=== PATIENT | female | born 1965 | race Caucasian/White ===

== ENCOUNTER 2018-05-22 02:09 | Emergency (ER) | payer MEDICARE, OTHER ==
[~2018-05-22] VITALS: Ht 157.5 cm; Wt 63.5 kg
[~2018-05-22 02:09] MED LIST: ATEN25 PO; ATEN50 PO; Crutch1 EACH MISC; LORA1 PO; MELA3 PO; OTC ANTACID PO; OXYCODONE; PHENY100ER PO; Percocet 10-321 EACH PO; ULTRA-LIGHT RO1 EACH MC; Zofran4 MG PO
[2018-05-22] MEDS ORDERED: PRAM.125 PO (02:54)
[2018-05-22] MEDS ORDERED: MELO7.5 PO (02:54)
[2018-05-22] MEDS ORDERED: FAMO10 PO (02:55)
[2018-05-22] MEDS ORDERED: Norco 5-325 Ta1 EACH PO (04:14)
== END 2018-05-22 04:33 | disposition home or self-care (01) ==
LOC: ER 02:09
DX: S63.502A Unspecified sprain of left wrist, initial encounter (principal); F41.9 Anxiety disorder, unspecified; F17.210 Nicotine dependence, cigarettes, uncomplicated; Z88.0 Allergy status to penicillin; Z88.5 Allergy status to narcotic agent; Z88.7 Allergy status to serum and vaccine; Z79.899 Other long term (current) drug therapy; X58.XXXA Exposure to other specified factors, initial encounter; Y93.E5 Activity, floor mopping and cleaning
CPT/HCPCS: 73110

== ENCOUNTER 2018-05-26 11:46 | Emergency (ER) | payer MEDICARE, OTHER ==
[~2018-05-26] VITALS: Ht 157.5 cm; Wt 63.5 kg
[~2018-05-26 11:46] MED LIST changes: +FAMO10 PO; +MELO7.5 PO; +Norco 5-325 Ta1 EACH PO; +PRAM.125 PO
[2018-05-26] MEDS ORDERED: Ultram50 MG PO (12:45)
== END 2018-05-26 12:50 | disposition home or self-care (01) ==
LOC: ER 11:46
DX: M25.532 Pain in left wrist (principal); G43.909 Migraine, unspecified, not intractable, without status migrainosus; F41.9 Anxiety disorder, unspecified; F17.210 Nicotine dependence, cigarettes, uncomplicated; Z88.0 Allergy status to penicillin; Z88.5 Allergy status to narcotic agent; Z88.7 Allergy status to serum and vaccine; Z79.899 Other long term (current) drug therapy
CPT/HCPCS: 29125; 99283

== ENCOUNTER 2024-03-10 09:44 | Inpatient (IN) | payer MEDICARE, OTHER ==
[~2024-03-10] VITALS: Ht 157.5 cm; Wt 43.1 kg
[~2024-03-10 09:44] MED LIST changes: +Ultram50 MG PO
[2024-03-10] MEDS ORDERED: FentaNYL Citrate 50 MCG/ML 2 ML Injection IV ONE (10:00)
[2024-03-10] MEDS ORDERED: NS 1,000 ML IV SCH ×2 (10:00→14:05)
[2024-03-10 10:40] LABS: BASOPHILS ABSOLUTE AUTO 0.21 K/mm3 (0.00-0.23); BASOPHILS PERCENT AUTO 1 % (0-2); EOSINOPHILS ABSOLUTE AUTO 0.47 K/mm3 (0.00-0.68); EOSINOPHILS PERCENT AUTO 2 % (0-6); Hematocrit 36.3 % (33.0-51.0); Hemoglobin 12.1 g/dL (11.5-16.0); IMMATURE GRAN ABSOLUTE AUTO 0.17 K/mm3 (0.00-0.10); IMMATURE GRAN PERCENT AUTO 1 % (0-1); LYMPHOCYTES ABSOLUTE AUTO 3.93 K/mm3 (0.84-5.20); LYMPHOCYTES PERCENT AUTO 17 % (21-46); MONOCYTES ABSOLUTE AUTO 1.85 K/mm3 (0.16-1.47); MONOCYTES PERCENT AUTO 8 % (4-13); Mean Corpuscular HGB 29.4 pg (26.0-34.0); Mean Corpuscular HGB Conc 33.3 g/dL (31.5-36.5); Mean Corpuscular Volume 88 fL (80-100); Mean Platelet Volume 8.3 fL (9.1-12.4); NEUTROPHILS ABSOLUTE AUTO 17.09 K/mm3 (1.96-9.15); NEUTROPHILS PERCENT AUTO 72 % (41-73); Platelet Count 830 K/mm3 (150-400); RDW Coefficient Variation 15.5 % (11.7-14.2); RDW Standard Deviation 48.9 fL (35.1-46.3); Red Blood Cell Count 4.12 M/mm3 (3.80-5.20); White Blood Cell Count 23.72 K/mm3 (4.00-11.30)
[2024-03-10] MEDS ORDERED: HYDROCODONE-AC1 EA19 PO (10:52)
[2024-03-10] MEDS ORDERED: DODEX1000 MCG/3 IM (10:53)
[2024-03-10] MEDS ORDERED: BACLOFEN10 M4 PO (10:53)
[2024-03-10] MEDS ORDERED: Simvastatin20 MG PO (10:53)
[2024-03-10 11:03] LABS: Albumin, Blood 2.2 g/dL (3.4-5.0); Albumin/Globulin Ratio 0.4 (0.8-1.8); Bilirubin, Total 0.3 mg/dL (0.1-1.0); Bun/Creatinine Ratio 18.4 (12.0-20.0); Calcium, Blood 8.5 mg/dL (8.5-10.1); Creatinine, Blood 0.54 mg/dL (0.40-1.00); Globulin, Blood 4.9 g/dL (2.2-4.0); Potassium, Blood 3.8 mmol/L (3.5-5.5); Total Protein, Blood 7.1 g/dL (6.4-8.2)
[2024-03-10 11:32] LABS: Source, Urine Clean Catch
[2024-03-10 12:06] LABS: Bilirubin, Urine Neg (Neg); Blood, Urine 3+ (Neg); Glucose Qualitative, Urine Neg (Neg); Ketones, Urine 1+ (Neg); Leukocyte Esterase, Urine 3+ (Neg); Nitrite, Urine Pos (Neg); Protein, Urine 2+ (Neg); Specific Gravity, Urine 1.015 (1.003-1.022); Urobilinogen, Urine NORM (Normal)
[2024-03-10 12:15] LABS: Appearance, Urine Hazy (Clear); Bacteria Many /hpf; Color, Urine Yellow (P-Yellow); Squamous Epithelial Cells Few /hpf (Few); White Blood Cells, Urine 25-50 /hpf (0-5)
[2024-03-10] MEDS ORDERED: Pantoprazole Sodium 40 MG Injection IV ONE (12:35)
[2024-03-10] MEDS ORDERED: CefTRIAXone Sodium 1,000 MG in NS 100 ML IV ONE (12:50)
[2024-03-10] MEDS ORDERED: Ondansetron 4 MG TAB PO PRN (14:10)
[2024-03-10] MEDS ORDERED: Acetaminophen 325 MG TABLET PO PRN (14:10)
[2024-03-10] MEDS ORDERED: HYDROcodone 10-APAP 325 TAB PO PRN (14:10)
[2024-03-10] MEDS ORDERED: NS 1,000 ML IV ONE (15:02)
[2024-03-10 15:55] VITALS: BP 115/69
--- NOTE | 2024-03-10 16:22 | NUR ---
ADMIT ARRIVED FROM ED VIA FUAD MARTIN, A&OX4, PT IS WEAK AND APPEARS EMACIATED, ASSISTED TO PIVOT TRANSFER TO BED, PT CAN BARELY STAND, STATES SHE USES A WALKER AND W/C AT HOME, PT'S CLOTHES APPEAR TO BE TOO LARGE FOR HER SIZE, PT'S PANTS FELL DOWN SHE STOOD STATES SHE LIVES AT HOME BUT HAS A CAREGIVER AND THAT SHE HASN'T BEEN ABLE TO EAT MUCH DUE TO HER CHRONIC ABD DISCOMFORT, PT REPORTS SEEING A GI PROVIDER FOR HER ABD DISCOMFORT, DENIES ANY NAUSEA OR PAIN AT THIS TIME, ORIENTED TO ROOM AND CALL SYSTEM, DR. RIZZO CURRENTLY IN ROOM TO SEE PT.
[2024-03-10] MEDS ORDERED: Sucralfate 1000MG / 10ML UD BTL PO SCH (16:30)
[2024-03-10] MEDS ORDERED: Pantoprazole Sodium 40 MG Injection IV SCH (16:30)
[2024-03-10] MEDS ORDERED: Mag Hydrox/Al Hydrox/Simeth 72 ML,Lidocaine 2% Viscous Soln 36 ML,Atropine/Scopalam/Hyo... PO PRN (17:25)
--- NOTE | 2024-03-10 18:18 | NUR ---
SUMMARY ED ADMIT TODAY FOR EPIGASTRIC PAIN, PT HAS DENIED ANY NEED FOR PAIN MEDS OR NAUSEA MEDS SINCE ADMIT, STATES PAIN IS "BETTER THAN IT WAS" DR. RIZZO SAW PT AT ADMIT, PLAN FOR POSSIBLE EGD TOMORROW PER DR. RIZZO, NPO FOR NOW, NO ACUTE CHANGES THIS SHIFT.
[2024-03-10 19:56] VITALS: BP 108/57
[2024-03-11 03:57] VITALS: BP 140/65
[2024-03-11] MEDS ORDERED: Morphine Sulfate 4 MG/1 ML Injection IV PRN (05:00)
[2024-03-11] MEDS ORDERED: Naloxone HCl 0.4MG / ML 1ML Vial IV PRN (05:00)
[2024-03-11 05:36] LABS: Hematocrit 29.5 % (33.0-51.0); Hemoglobin 9.5 g/dL (11.5-16.0); Mean Corpuscular HGB 29.4 pg (26.0-34.0); Mean Corpuscular HGB Conc 32.2 g/dL (31.5-36.5); Mean Corpuscular Volume 91 fL (80-100); Mean Platelet Volume 8.8 fL (9.1-12.4); Platelet Count 712 K/mm3 (150-400); RDW Coefficient Variation 15.9 % (11.7-14.2); RDW Standard Deviation 52.3 fL (35.1-46.3); Red Blood Cell Count 3.23 M/mm3 (3.80-5.20); White Blood Cell Count 14.69 K/mm3 (4.00-11.30)
[2024-03-11 06:11] LABS: Albumin, Blood 1.8 g/dL (3.4-5.0); Albumin/Globulin Ratio 0.4 (0.8-1.8); Bilirubin, Total 0.2 mg/dL (0.1-1.0); Bun/Creatinine Ratio 11.6 (12.0-20.0); Creatinine, Blood 0.52 mg/dL (0.40-1.00); Potassium, Blood 3.8 mmol/L (3.5-5.5); Total Protein, Blood 5.8 g/dL (6.4-8.2)
--- NOTE | 2024-03-11 06:56 | NUR ---
SUMMARY PT C/O INCREASED PAIN THIS AM. I CALLED AND RECIEVED CAMMIE FOR MORPHINE IV 1 MG COWAN GIVEN.PT RESTING QUIETLY AT THIS TIME.
[2024-03-11 07:29] VITALS: BP 110/74
--- NOTE | 2024-03-11 07:40 | NUR ---
PT GAVE VERBAL PERMISSION TO SPEAK WITH DAUGHTER DAMEON AND GIVE INFO REGARDING HER STATUS AND PROCEDURES BEING DONE,BUT DOES NOT WANT PT SPEAKING WITH HER DOCTOR AND DAUGHTER NOT ALLOWED TO MAKE ANY DECISIONS REGARDING PT.
--- NOTE | 2024-03-11 11:26 | NUR ---
"Spiritual Care | Pt. request. pt. is awake in bed and welcomes my visit. Pt. is pleasant, and I facilitated a life review. Pt. displayed evidence of trust but is unsettled by not being able to her condition properly diagnosed. Considered matters of meaghan and belief. Prayed with Pt. Pt. verbalized gratitude for the spiritual care visit and welcomed this roll filler to return."
[2024-03-11] MEDS ORDERED: Nicotine Polacrilex 2 MG Gum PO ONE (12:00)
[2024-03-11] MEDS ORDERED: Nicotine Polacrilex 2 MG Gum PO PRN (12:00)
[2024-03-11] MEDS ORDERED: DiphenhydrAMINE HCl 50 MG Cap PO PRN (12:05)
[2024-03-11 12:20] LABS: BASOPHILS ABSOLUTE AUTO 0.12 K/mm3 (0.00-0.23); BASOPHILS PERCENT AUTO 1 % (0-2); EOSINOPHILS PERCENT AUTO 2 % (0-6); Hemoglobin 10.4 g/dL (11.5-16.0); IMMATURE GRAN ABSOLUTE AUTO 0.06 K/mm3 (0.00-0.10); IMMATURE GRAN PERCENT AUTO 0 % (0-1); LYMPHOCYTES ABSOLUTE AUTO 3.71 K/mm3 (0.84-5.20); LYMPHOCYTES PERCENT AUTO 23 % (21-46); MONOCYTES PERCENT AUTO 8 % (4-13); Mean Corpuscular HGB 29.1 pg (26.0-34.0); Mean Corpuscular HGB Conc 31.5 g/dL (31.5-36.5); Mean Corpuscular Volume 92 fL (80-100); Mean Platelet Volume 8.4 fL (9.1-12.4); NEUTROPHILS ABSOLUTE AUTO 10.47 K/mm3 (1.96-9.15); NEUTROPHILS PERCENT AUTO 66 % (41-73); Platelet Count 694 K/mm3 (150-400); RDW Coefficient Variation 15.7 % (11.7-14.2); RDW Standard Deviation 52.5 fL (35.1-46.3); Red Blood Cell Count 3.57 M/mm3 (3.80-5.20); White Blood Cell Count 15.86 K/mm3 (4.00-11.30)
[2024-03-11] MEDS ORDERED: CefTRIAXone Sodium 1,000 MG in NS 100 ML IV SCH (13:00)
--- NOTE | 2024-03-11 14:13 | NUR ---
REPORTS TOLERATING SMALL AMOUNTS OF CLEAR LIQUIDS, DENIES ANY ABD PAIN AT THIS TIME, REFUSED NICOTINE GUM.
[2024-03-11 14:21] VITALS: BP 118/63
[2024-03-11] MEDS ORDERED: Pramipexole DI-HCL 0.125 MG Tab PO ONE (17:05)
--- NOTE | 2024-03-11 18:01 | NUR ---
SUMMARY A&OX4, DENIED ANY ABD PAIN TODAY, SLEPT ON AND OFF, USES [facility]SC W/ ASSIST, STARTED ON CL WITH SOME CHEESE AND CRACKERS OK PER DR. SANTA, PT REPORTS TOLERATED WELL, C/O PAIN AND "RESTLESS" LEGS ON BLE'S STATES DUE TO HER REYNAUD'S SYNDROME,NORCO FOR PAIN, MIRAPEX RE-STARTED, K-PAD GIVEN FOR COMFORT, PLAN FOR UGI XR IN AM PER DR. SANTA, NO OTHER CHANGES THIS SHIFT.
[2024-03-12 05:35] LABS: BASOPHILS ABSOLUTE AUTO 0.16 K/mm3 (0.00-0.23); BASOPHILS PERCENT AUTO 1 % (0-2); EOSINOPHILS PERCENT AUTO 4 % (0-6); Hematocrit 30.8 % (33.0-51.0); Hemoglobin 9.9 g/dL (11.5-16.0); IMMATURE GRAN ABSOLUTE AUTO 0.08 K/mm3 (0.00-0.10); IMMATURE GRAN PERCENT AUTO 1 % (0-1); LYMPHOCYTES ABSOLUTE AUTO 4.17 K/mm3 (0.84-5.20); LYMPHOCYTES PERCENT AUTO 33 % (21-46); MONOCYTES ABSOLUTE AUTO 1.04 K/mm3 (0.16-1.47); MONOCYTES PERCENT AUTO 8 % (4-13); Mean Corpuscular HGB 29.4 pg (26.0-34.0); Mean Corpuscular HGB Conc 32.1 g/dL (31.5-36.5); Mean Corpuscular Volume 91 fL (80-100); Mean Platelet Volume 8.8 fL (9.1-12.4); NEUTROPHILS ABSOLUTE AUTO 6.71 K/mm3 (1.96-9.15); NEUTROPHILS PERCENT AUTO 53 % (41-73); Platelet Count 739 K/mm3 (150-400); RDW Standard Deviation 53.1 fL (35.1-46.3); Red Blood Cell Count 3.37 M/mm3 (3.80-5.20); White Blood Cell Count 12.66 K/mm3 (4.00-11.30)
[2024-03-12 05:44] VITALS: BP 127/69
[2024-03-12 06:15] LABS: Alanine Aminotransfer (ALT/SGP <6 U/L (12-78); Albumin, Blood 1.8 g/dL (3.4-5.0); Albumin/Globulin Ratio 0.4 (0.8-1.8); Alk Phos 149 U/L (50-136); Anion Gap 8 mmol/L (3-11); Aspartate Aminotrans (AST/SGOT 6 U/L (12-37); Bilirubin, Total 0.1 mg/dL (0.1-1.0); Blood Urea Nitrogen 3 mg/dL (8-24); Bun/Creatinine Ratio 7.2 (12.0-20.0); CO2, Blood 25 mmol/L (21-32); Chloride, Blood 113 mmol/L (98-108); Creatinine, Blood 0.42 mg/dL (0.40-1.00); Globulin, Blood 4.2 g/dL (2.2-4.0); Glomerular Filtration Rate 115 (60-); Glucose, Blood 84 mg/dL (70-99); Potassium, Blood 3.8 mmol/L (3.5-5.5); Sodium, Blood 142 mmol/L (136-145)
[2024-03-12 07:16] VITALS: BP 116/70
--- NOTE | 2024-03-12 07:24 | NUR ---
summary pt transferred from [facility] tonight.alert,but oriented to self only.pt with picc line lue.bilat arm fx with bruising and scabs to [facility].tele notes afib at controlled rate.pt with htn which is not new. i called dr garcia and received order for hydralazine and gave first dose.pts picc federico for blood without diff. pt pulled ng out approx 0600.
--- NOTE | 2024-03-12 07:32 | NUR ---
summary pt anxiously waiting for ugi. pt verb u nderstanding of being npo at this time.
[2024-03-12] MEDS ORDERED: Nicotine 21 MG PATCH TOP SCH (09:00)
[2024-03-12] MEDS ORDERED: Multivitamins 1 Tab PO SCH (09:00)
[2024-03-12] MEDS ORDERED: Pramipexole DI-HCL 0.125 MG Tab PO SCH (09:00)
[2024-03-12] MEDS ORDERED: Thiamine HCl 100 MG Tab PO SCH (09:00)
[2024-03-12 14:34] VITALS: BP 119/71
--- NOTE | 2024-03-12 18:34 | NUR ---
SHIFT SUMMARY: PT TOLERATED CLEAR LIQUID DIET THROUGHOUT THE DAY AND GRADUATED TO SOFT FOOD DIET. EATING DRINKING AND VOIDING WELL. PT DID NOT HAVE A BM TODAY TO COLLECT SPECIMEN. PT REMAINS TO HAVE ABD, LEG, AND BACK PAIN WHICH IS MEDICATED PER EMAR. PLEASANT MOOD. A&O X4. VSS.
[2024-03-12 19:49] VITALS: BP 122/72
--- NOTE | 2024-03-13 00:31 | NUR ---
IV AND MEDICATION MANAGEMENT CALL PLACED TO HOSPITALIST D/T LOOSING IV ACCESS, RECIEVED ORDER TO CHANGE IV MEDD TO PO MEDICATION. THE EMAR REFLECTS THIS CHANGE.
[2024-03-13 04:34] VITALS: BP 135/77
[2024-03-13 04:50] LABS: Hemoglobin 9.1 g/dL (11.5-16.0); Mean Corpuscular HGB 29.3 pg (26.0-34.0); Mean Corpuscular HGB Conc 32.5 g/dL (31.5-36.5); Mean Corpuscular Volume 90 fL (80-100); Mean Platelet Volume 8.5 fL (9.1-12.4); Platelet Count 632 K/mm3 (150-400); RDW Coefficient Variation 16.1 % (11.7-14.2); RDW Standard Deviation 52.3 fL (35.1-46.3); Red Blood Cell Count 3.11 M/mm3 (3.80-5.20); White Blood Cell Count 11.18 K/mm3 (4.00-11.30)
--- NOTE | 2024-03-13 05:00 | NUR ---
SHIFT SUMMARY VSS. PT SLEPT ON AND OFF T/O THE NIGHT. TOLLERATED CHEESE AND CRACKERS W/O N/V. REPORTS RUQ/EPIGASTRIC PAIN THAT IS PERSISTANT. MEDICATED FOR PAIN WITH NORCO AND MORPHINE WITH LITTLE IMPROVEMENT. PT REPORTED HER LEGS AND BACK WERE HER MAIN SOURCE OF PAIN T/O THE NIGHT. SELF TRANSFERRING TO [facility] T/O THE NIGHT. VOIDING WELL, NO BM NOTED. PT REPORTS PASSING SOME FLATTUS. PLEASENT AND COOPERATIVE. NO ACUTE EVENTS NOTED. PLAN FOR D/C TODAY IF PT CAN TOLLERATE DIET.
[2024-03-13 05:42] LABS: Alanine Aminotransfer (ALT/SGP <6 U/L (12-78); Albumin, Blood 1.8 g/dL (3.4-5.0); Albumin/Globulin Ratio 0.5 (0.8-1.8); Alk Phos 136 U/L (50-136); Anion Gap 9 mmol/L (3-11); Aspartate Aminotrans (AST/SGOT 6 U/L (12-37); Bilirubin, Total <0.1 mg/dL (0.1-1.0); Blood Urea Nitrogen 3 mg/dL (8-24); Bun/Creatinine Ratio 6.8 (12.0-20.0); CO2, Blood 27 mmol/L (21-32); Calcium, Blood 7.8 mg/dL (8.5-10.1); Chloride, Blood 111 mmol/L (98-108); Creatinine, Blood 0.44 mg/dL (0.40-1.00); Globulin, Blood 3.7 g/dL (2.2-4.0); Glomerular Filtration Rate 113 (60-); Glucose, Blood 79 mg/dL (70-99); Potassium, Blood 3.3 mmol/L (3.5-5.5); Sodium, Blood 144 mmol/L (136-145); Total Protein, Blood 5.5 g/dL (6.4-8.2)
[2024-03-13] MEDS ORDERED: Pantoprazole Sodium 40 MG Tab PO SCH (06:00)
[2024-03-13 06:57] LABS: BASOPHILS ABSOLUTE MAN 0.22 K/mm3 (0.00-0.23); BASOPHILS PERCENT MAN 2 % (0-2); EOSINOPHILS ABSOLUTE MAN 0.89 K/mm3 (0.00-0.68); EOSINOPHILS PERCENT MAN 8 % (0-6); LYMPHOCYTES ABSOLUTE MAN 4.36 K/mm3 (0.84-5.20); LYMPHOCYTES PERCENT MAN 39 % (21-46); MONOCYTES ABSOLUTE MAN 0.67 K/mm3 (0.16-1.47); MONOCYTES PERCENT MAN 6 % (4-13); NEUTROPHILS ABSOLUTE MAN 5.03 K/mm3 (1.96-9.15); SEG NEUTROPHILS PERCENT MAN 45 % (41-73); TOTAL CELLS COUNTED 100
[2024-03-13 07:41] VITALS: BP 136/75
[2024-03-13] MEDS ORDERED: Cefdinir 300 MG Cap PO SCH (09:00)
[2024-03-13] MEDS ORDERED: Potassium Chloride 20 MEQ TabCR PO ONE (09:00)
[2024-03-13] MEDS ORDERED: PANT40 PO (11:02)
[2024-03-13] MEDS ORDERED: CEFD300 PO (11:07)
--- NOTE | 2024-03-13 12:01 | NUR ---
DISCHARGE PT DISCHARGED HOME FROM UNIT AT APROX 1202 VIA [facility]. PT GIVEN WRITTEN AND VERBAL DISCHARGE INSTRUCTIONS AND VERBALIZED UNDERSTANDING OF THESE INSTRUCTIONS. NO IV TO REMOVE. NEW RX'S FAXED TO [facility] NOTIFIED.
== END 2024-03-13 12:48 | disposition home or self-care (01) | DRG 384 ==
LOC: ER 09:44 → SURS 09:45
PROVIDERS: Emergency Medicine; ADMIT Internal Medicine
DX: K27.9 Peptic ulcer, site unspecified, unspecified as acute or chronic, without hemorrhage or perforation (principal); N39.0 Urinary tract infection, site not specified; R64 Cachexia; Z68.1 Body mass index [BMI] 19.9 or less, adult; E46 Unspecified protein-calorie malnutrition; K29.80 Duodenitis without bleeding; F41.9 Anxiety disorder, unspecified; F10.90 Alcohol use, unspecified, uncomplicated; K82.8 Other specified diseases of gallbladder; K29.70 Gastritis, unspecified, without bleeding; T39.395A Adverse effect of other nonsteroidal anti-inflammatory drugs [NSAID], initial encounter; F17.210 Nicotine dependence, cigarettes, uncomplicated; M19.90 Unspecified osteoarthritis, unspecified site; Z87.81 Personal history of (healed) traumatic fracture; I48.91 Unspecified atrial fibrillation; Z98.51 Tubal ligation status; Z98.890 Other specified postprocedural states; I73.00 Raynaud's syndrome without gangrene; Z66 Do not resuscitate; Z88.0 Allergy status to penicillin; Z88.5 Allergy status to narcotic agent; Z88.7 Allergy status to serum and vaccine; Z79.899 Other long term (current) drug therapy; Z79.891 Long term (current) use of opiate analgesic; Z71.6 Tobacco abuse counseling; D64.9 Anemia, unspecified; R82.71 Bacteriuria
CPT/HCPCS: 36415; 74177; 74240; 76705; 80053; 81001; 83690; 85025; 85027; 87077; 87086; 87186; 94762; 96361; 96365-59; 96366; 96375; 96376; 99285-25; A9270; C9113; G0378; J0696; J2270; J3010; J7030; Q9967

== ENCOUNTER → 2024-04-27 | Outpatient (CLI) | payer MEDICARE, OTHER ==
[~2024-04-27] MED LIST changes: +BACLOFEN10 M4 PO; +CEFD300 PO; +DODEX1000 MCG/3 IM; +HYDROCODONE-AC1 EA19 PO; +PANT40 PO; +Simvastatin20 MG PO
[2024-04-27 11:07] LABS: Hematocrit 34.4 % (33.0-51.0); Hemoglobin 11.3 g/dL (11.5-16.0); Mean Corpuscular HGB 27.8 pg (26.0-34.0); Mean Corpuscular HGB Conc 32.8 g/dL (31.5-36.5); Mean Corpuscular Volume 85 fL (80-100); Mean Platelet Volume 10.1 fL (9.1-12.4); Platelet Count 499 K/mm3 (150-400); RDW Coefficient Variation 14.6 % (11.7-14.2); RDW Standard Deviation 45.2 fL (35.1-46.3); RETICULOCYTE ABSOLUTE 0.0491 M/mm3 (0.0200-0.1100); RETICULOCYTE COUNT PERCENT 1.21 % (0.50-2.50); Red Blood Cell Count 4.06 M/mm3 (3.80-5.20); White Blood Cell Count 16.58 K/mm3 (4.00-11.30)
[2024-04-27 11:36] LABS: BASOPHILS PERCENT MAN 0 % (0-2); EOSINOPHILS ABSOLUTE MAN 0.66 K/mm3 (0.00-0.68); EOSINOPHILS PERCENT MAN 4 % (0-6); LYMPHOCYTES % ATYPICAL MANUAL 2 % (0-0); LYMPHOCYTES ABSOLUTE MAN 4.47 K/mm3 (0.84-5.20); LYMPHOCYTES PERCENT MAN 25 % (21-46); MONOCYTES ABSOLUTE MAN 0.66 K/mm3 (0.16-1.47); MONOCYTES PERCENT MAN 4 % (4-13); NEUTROPHILS ABSOLUTE MAN 10.77 K/mm3 (1.96-9.15); SEG NEUTROPHILS PERCENT MAN 65 % (41-73); TOTAL CELLS COUNTED 100
[2024-04-27 11:43] LABS: Albumin, Blood 3.1 g/dL (3.4-5.0); Albumin/Globulin Ratio 0.7 (0.8-1.8); Bilirubin, Total 0.1 mg/dL (0.1-1.0); Bun/Creatinine Ratio 22.2 (12.0-20.0); Calcium, Blood 9.2 mg/dL (8.5-10.1); Creatinine, Blood 0.5 mg/dL (0.40-1.00); Globulin, Blood 4.7 g/dL (2.2-4.0); Percent Saturation 10.1 % (15.0-50.0); Potassium, Blood 4.1 mmol/L (3.5-5.5); Thyroid Stimulating Hormone 2.54 uIU/mL (0.360-4.800); Total Protein, Blood 7.8 g/dL (6.4-8.2)
[2024-04-28 20:33] LABS: ERYTHROPOIETIN 23 mU/mL (4-27)
[2024-04-29 14:35] LABS: SOLUBLE TRANSFERRIN RECEPTOR 3.2 mg/L (1.9-4.4)
[2024-04-30 06:48] LABS: ALBUMIN 3.49 g/dL (3.75-5.01); ALPHA 1 GLOBULIN 0.42 g/dL (0.19-0.46); ALPHA 2 GLOBULIN 1.14 g/dL (0.48-1.05); BETA GLOBULIN 1.02 g/dL (0.48-1.10); GAMMA 1.02 g/dL (0.62-1.51); IMMUNOFIXATION IFE Done; TOTAL PROTEIN, SERUM 7.1 g/dL (6.3-8.2)
== END ==
LOC: LAB 10:15 → LAB SHORT 10:15
PROVIDERS: Nurse Practitioner
DX: D64.9 Anemia, unspecified (principal); D72.829 Elevated white blood cell count, unspecified; D75.839 Thrombocytosis, unspecified; E55.9 Vitamin D deficiency, unspecified; E53.8 Deficiency of other specified B group vitamins
CPT/HCPCS: 80053; 82306; 82607; 82668; 82728; 82746; 83540; 83550; 83615; 84155; 84165; 84238; 84443; 85025; 85045; 85060; 86334

== ENCOUNTER 2024-06-24 14:18 | Day surgery (SDC) | payer MEDICARE, OTHER ==
[~2024-06-24] VITALS: Ht 157.5 cm; Wt 59.0 kg
[~2024-06-24 14:18] MED LIST changes: +Atropine Sulfate 0.1 MG/ML 10ML SYR ONE; +Glycopyrrolate 0.2 MG/ML 1MLVIAL ONE; +Lactated Ringer's 1,000 ML IV ONE; +Lidocaine 2% 5 ML SDV ONE; +Lidocaine HCl/Pf 1% 5 ML VIAL ONE; +Methylene Blue 1% 100 MG/10 ML VIAL ONE; +Ondansetron HCl 2 MG / ML 2ML Vial ONE; +ePHEDrine Sulfate 50 MG/ML 1ML Injection ONE
[2024-06-24] MEDS ORDERED: Tylenol W/Code120 ML (14:36)
[2024-06-24] MEDS ORDERED: BENADRYL25 MG (14:36)
[2024-06-24] MEDS ORDERED: LORA10ER (14:37)
[2024-06-24] MEDS ORDERED: Lactated Ringer's 1,000 ML IV ONE (14:45)
[2024-06-24] MEDS ORDERED: propofoL 50 ML IV ONE (15:20)
[2024-06-24 16:13] VITALS: BP 107/70
--- NOTE | 2024-06-25 09:44 | NUR ---
06/25/24 0944 Arlet Harris LATE ENTRY: DR ALVARADO GAVE PT A TOTAL OF 40 MG OF EPHEDRINE TO ASSIST PATIENT'S LOW BP FOLLOWING PROCEDURE.
== END 2024-06-24 16:15 | disposition home or self-care (01) ==
LOC: ORSCSDS 14:18
PROVIDERS: Surgery
PROC: 0DJ08ZZ Inspection of Upper Intestinal Tract, Via Natural or Artificial Opening Endoscopic (ICD-10-PCS; principal; 2024-06-24 15:15)
DX: Z87.11 Personal history of peptic ulcer disease (principal); K21.9 Gastro-esophageal reflux disease without esophagitis; Z87.19 Personal history of other diseases of the digestive system; I47.10 Supraventricular tachycardia, unspecified; F32.A Depression, unspecified; G40.909 Epilepsy, unspecified, not intractable, without status epilepticus; F41.9 Anxiety disorder, unspecified; D64.9 Anemia, unspecified; F17.210 Nicotine dependence, cigarettes, uncomplicated; Z79.899 Other long term (current) drug therapy
CPT/HCPCS: J0461; J2001; J2405; J2704; J7120; Q9968

== ENCOUNTER 2025-01-16 01:34 | Emergency (ER) | payer MEDICARE, OTHER ==
[~2025-01-16] VITALS: Ht 157.5 cm; Wt 59.0 kg
[~2025-01-16 01:34] MED LIST changes: -Atropine Sulfate 0.1 MG/ML 10ML SYR ONE; +BENADRYL25 MG; -Glycopyrrolate 0.2 MG/ML 1MLVIAL ONE; +LORA10ER; -Lactated Ringer's 1,000 ML IV ONE; -Lidocaine 2% 5 ML SDV ONE; -Lidocaine HCl/Pf 1% 5 ML VIAL ONE; -Methylene Blue 1% 100 MG/10 ML VIAL ONE; -Ondansetron HCl 2 MG / ML 2ML Vial ONE; +Tylenol W/Code120 ML; -ePHEDrine Sulfate 50 MG/ML 1ML Injection ONE
[2025-01-16] MEDS ORDERED: Ibuprofen 400 MG Tab PO ONE (01:40)
[2025-01-16] MEDS ORDERED: IBUP400 PO (03:09)
[2025-01-16 03:31] VITALS: BP 103/58
== END 2025-01-16 03:22 | disposition home or self-care (01) ==
LOC: ER 01:34
DX: S93.601A Unspecified sprain of right foot, initial encounter (principal); M79.644 Pain in right finger(s); M81.0 Age-related osteoporosis without current pathological fracture; F17.210 Nicotine dependence, cigarettes, uncomplicated; X50.0XXA Overexertion from strenuous movement or load, initial encounter; Z88.0 Allergy status to penicillin; Z88.8 Allergy status to other drugs, medicaments and biological substances; Z88.5 Allergy status to narcotic agent; Z88.1 Allergy status to other antibiotic agents; Z88.7 Allergy status to serum and vaccine
CPT/HCPCS: 73140; 73630; 99283-25; A9270